=== PATIENT | female | born 1980 | race Caucasian/White ===

== ENCOUNTER 2016-11-03 | Outpatient (CLI) | payer MEDICARE, MEDICAID | END 2016-11-03 14:21 | disposition EMS.NT ==

== ENCOUNTER 2016-11-16 | Outpatient (CLI) | payer MEDICARE, MEDICAID | END 2016-11-16 19:11 | disposition EMS.NT ==

== ENCOUNTER 2016-11-24 08:00 | Outpatient (CLI) | payer MEDICARE, MEDICAID | END 2016-11-24 23:59 | disposition home or self-care (01) | DX: J92.9 Pleural plaque without asbestos (principal) ==

== ENCOUNTER 2016-12-13 15:15 | Outpatient (CLI) | payer MEDICARE, MEDICAID | END 2016-12-13 15:16 | disposition home or self-care (01) | DX: Q99.8 Other specified chromosome abnormalities (principal); G40.909 Epilepsy, unspecified, not intractable, without status epilepticus; Z79.899 Other long term (current) drug therapy; Z51.81 Encounter for therapeutic drug level monitoring; G40.319 Generalized idiopathic epilepsy and epileptic syndromes, intractable, without status epilepticus ==

== ENCOUNTER 2017-01-02 13:50 | Outpatient (CLI) | payer MEDICARE, MEDICAID | END 2017-01-02 13:51 | disposition home or self-care (01) | DX: Q99.8 Other specified chromosome abnormalities (principal); G40.909 Epilepsy, unspecified, not intractable, without status epilepticus; Z79.899 Other long term (current) drug therapy; Z51.81 Encounter for therapeutic drug level monitoring; G40.319 Generalized idiopathic epilepsy and epileptic syndromes, intractable, without status epilepticus ==

== ENCOUNTER 2017-04-06 08:19 | Emergency (ER) | payer OTHER, MEDICARE, MEDICAID ==
[2017-04-06 13:14] LABS: BILIRUBIN,URINE NEGATIVE (NEGATIVE); PH,URINE 7.5 PH (5.0-7.5)
[2017-04-06 13:16] LABS: HCG UR QUAL NEGATIVE; UA w/ MICROSCOPIC CHARGE YES
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
[2017-04-06 13:21] LABS: UR CULTURE IF IND NOT INDICATED; WBC,URINE 0-3 /HPF (0-5)
[2017-04-06 13:27] VITALS: BP 129/63
== END 2017-04-06 13:24 | disposition home or self-care (01) ==
LOC: ED 08:19
DX: T76.21XA Adult sexual abuse, suspected, initial encounter (principal); R62.50 Unspecified lack of expected normal physiological development in childhood; R25.1 Tremor, unspecified
CPT/HCPCS: 0133C; 51701; 80074; 81001; 81025; 87210; 87341; 87389; 87491; 87591; 99283; 81003; 87086

== ENCOUNTER 2018-01-09 13:37 | Outpatient (CLI) | payer MEDICARE, MEDICAID ==
[2018-01-09 14:13] LABS: BASOPHILS % (AUTO) 0.6 %; EOSINOPHILS # (AUTO) 0.1 10^3/uL (0.0-0.7); EOSINOPHILS % (AUTO) 2.1 %; HGB - HEMOGLOBIN 14.3 g/dL (12.0-16.0); LYMPHOCYTES # (AUTO) 1.2 10^3/uL (1.5-3.5); LYMPHOCYTES % (AUTO) 27.1 %; MEAN CORPUSCULAR HEMOGLOBIN 29.2 pg (27.0-31.0); MEAN CORPUSCULAR HGB CONC 32.7 g/dL (32.0-36.0); MEAN CORPUSCULAR VOLUME 89.3 fL (81.0-99.0); MONOCYTES # (AUTO) 0.3 10^3/uL (0.0-1.0); MONOCYTES % (AUTO) 7.2 %; NEUTROPHILS # (AUTO) 2.7 10^3/uL (1.5-6.6); PLT - PLATELET COUNT 116 10^3/uL (130-450); RED BLOOD COUNT 4.89 10^6/uL (4.20-5.40); RED CELL DISTRIBUTION WIDTH 14.2 % (12.0-15.0); WHITE BLOOD COUNT 4.3 x10^3/uL (4.8-10.8)
[2018-01-09 14:45] LABS: ALBUMIN 4.6 g/dL (3.2-5.5); ALBUMIN/GLOBULIN RATIO 1.9 (1.0-2.2); BILIRUBIN,TOTAL 0.3 mg/dL (0.2-1.0); CALCIUM 8.9 mg/dL (8.5-10.3); CREATININE 0.6 mg/dL (0.4-1.0)
== END 2018-01-09 13:38 | disposition home or self-care (01) ==
LOC: LAB 13:37
PROVIDERS: ATTEND Psychiatry & Neurology Neurology
DX: Z79.899 Other long term (current) drug therapy (principal)
CPT/HCPCS: 36415; 80053; 80175; 81599; 85025

== ENCOUNTER 2018-03-29 14:11 | Outpatient (CLI) | payer MEDICARE, MEDICAID | END 2018-03-29 14:12 | disposition home or self-care (01) | LOC: LAB.F 14:11 | PROVIDERS: ATTEND Internal Medicine Hematology & Oncology | DX: Z79.01 Long term (current) use of anticoagulants (principal); Z86.718 Personal history of other venous thrombosis and embolism; I82.409 Acute embolism and thrombosis of unspecified deep veins of unspecified lower extremity | CPT/HCPCS: 85610 ==

== ENCOUNTER 2018-05-18 13:52 | Outpatient (CLI) | payer MEDICARE, MEDICAID | END 2018-05-18 13:53 | disposition home or self-care (01) | LOC: LAB.F 13:52 | PROVIDERS: ATTEND Internal Medicine Hematology & Oncology | DX: I82.409 Acute embolism and thrombosis of unspecified deep veins of unspecified lower extremity (principal); Z86.718 Personal history of other venous thrombosis and embolism; Z79.01 Long term (current) use of anticoagulants | CPT/HCPCS: 85610 ==

== ENCOUNTER 2018-06-26 14:15 | Outpatient (CLI) | payer MEDICARE, MEDICAID | END 2018-06-26 14:16 | disposition home or self-care (01) | LOC: LAB.F 14:15 | PROVIDERS: ATTEND Internal Medicine Hematology & Oncology | DX: Z79.01 Long term (current) use of anticoagulants (principal); Z86.718 Personal history of other venous thrombosis and embolism; I82.409 Acute embolism and thrombosis of unspecified deep veins of unspecified lower extremity | CPT/HCPCS: 85610 ==

== ENCOUNTER 2019-08-01 12:20 | Emergency (ER) | payer MEDICARE, MEDICAID ==
[2019-08-01 12:29] VITALS: BP 100/64
[2019-08-01] MEDS ORDERED: PROPARACAINE 0.5% OPHTH DROPS 15 ML RIGHTEYE STA (13:34)
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
== END 2019-08-01 14:18 | disposition home or self-care (01) ==
LOC: ED 12:20
DX: B00.52 Herpesviral keratitis (principal); Z79.01 Long term (current) use of anticoagulants; Z86.718 Personal history of other venous thrombosis and embolism; G40.909 Epilepsy, unspecified, not intractable, without status epilepticus
CPT/HCPCS: 99283; 99284; J3490

== ENCOUNTER 2019-08-19 14:32 | Outpatient (CLI) | payer MEDICARE, MEDICAID | END 2019-08-19 14:33 | disposition home or self-care (01) | LOC: LAB.S 14:32 | PROVIDERS: ATTEND Psychiatry & Neurology Neurology | DX: Z51.81 Encounter for therapeutic drug level monitoring (principal); Z79.899 Other long term (current) drug therapy; G40.919 Epilepsy, unspecified, intractable, without status epilepticus | CPT/HCPCS: 36415; 80175; 80201; 81599 ==

== ENCOUNTER 2020-08-08 15:40 | Outpatient (CLI) | payer MEDICARE, MEDICAID | END 2020-08-08 23:59 | disposition home or self-care (01) | LOC: LAB.R 15:40 | PROVIDERS: ATTEND Emergency Medicine | DX: J34.89 Other specified disorders of nose and nasal sinuses (principal) | CPT/HCPCS: 87070 ==

== ENCOUNTER 2020-12-22 14:05 | Outpatient (CLI) | payer MEDICARE, MEDICAID ==
[2020-12-22 20:01] LABS: ALBUMIN 4.1 g/dL (3.2-5.5); BILIRUBIN,DIRECT 0.1 mg/dL (0.1-0.5); BILIRUBIN,TOTAL 0.5 mg/dL (0.2-1.0)
== END 2020-12-22 14:06 | disposition home or self-care (01) ==
LOC: LAB.S 14:05
PROVIDERS: ATTEND Psychiatry & Neurology Neurology
DX: G40.814 Lennox-Gastaut syndrome, intractable, without status epilepticus (principal); Z51.81 Encounter for therapeutic drug level monitoring; Z79.899 Other long term (current) drug therapy
CPT/HCPCS: 36415; 80076; 80175; 80201; 81599; 87086

== ENCOUNTER 2021-03-22 16:41 | Outpatient (CLI) | payer MEDICARE, MEDICAID | END 2021-03-22 16:42 | disposition home or self-care (01) | LOC: COV 16:41 | PROVIDERS: ATTEND Internal Medicine Gastroenterology | DX: Z01.812 Encounter for preprocedural laboratory examination (principal); Z20.822 Contact with and (suspected) exposure to COVID-19 ==

== ENCOUNTER 2021-04-08 08:00 | Outpatient (CLI) | payer MEDICARE, MEDICAID ==
--- NOTE | 2021-04-08 14:27 | XRAY Report ---
PROCEDURE: Ankle 3 View LT INDICATIONS: PALLISTER-MARSHA SYNDROME/BILATERAL ANKLE PAIN TECHNIQUE: 3 views of the ankle were acquired. COMPARISON: None FINDINGS: Bones: No fractures or dislocations. Ankle mortise is normally aligned. No suspicious bony lesions . Soft tissues: No tibiotalar joint effusion. Achilles tendon appears normal. IMPRESSION: No acute fracture. No osseous lesion. If symptoms and/or clinical suspicion for patholog y continue, further assessment with repeat plain films, or advanced imaging (e.g., CT, MRI, or bone s can) is recommended for further assessment. Reviewed by: Cristopher Nunez MD on 04/08/2021 2:26 PM PDT Approved by: Cristopher Nunez MD on 04/08/2021 2:26 PM PDT Station ID: [id number]
--- NOTE | 2021-04-08 14:28 | XRAY Report ---
PROCEDURE: Ankle 3 View RT INDICATIONS: PALLISTER-MARSHA SYNDROME/BILATERAL ANKLE PAIN TECHNIQUE: 3 views of the ankle were acquired. COMPARISON: None FINDINGS: Bones: No fractures or dislocations. Ankle mortise is normally aligned. No suspicious bony lesions . Soft tissues: No tibiotalar joint effusion. Achilles tendon appears normal. IMPRESSION: No acute fracture. No osseous lesion. If symptoms and/or clinical suspicion for patholog y continue, further assessment with repeat plain films, or advanced imaging (e.g., CT, MRI, or bone s can) is recommended for further assessment. Reviewed by: Cristopher Nunez MD on 04/08/2021 2:26 PM PDT Approved by: Cristopher Nunez MD on 04/08/2021 2:26 PM PDT Station ID: [id number]
== END 2021-04-08 23:59 | disposition home or self-care (01) ==
LOC: DI.S 08:00
PROVIDERS: ATTEND Emergency Medicine
DX: M25.571 Pain in right ankle and joints of right foot (principal); M25.572 Pain in left ankle and joints of left foot

== ENCOUNTER 2021-04-29 08:00 | Outpatient (CLI) | payer MEDICARE, MEDICAID ==
--- NOTE | 2021-04-29 15:11 | XRAY Report ---
PROCEDURE: Chest 2 View X-Ray INDICATIONS: COUGH TECHNIQUE: 2 view(s) of the chest. COMPARISON: None. FINDINGS: Surgical changes and devices: None. Lungs and pleura: No pleural effusions or pneumothorax. Lungs are clear. Mediastinum: Mediastinal contours are normal. Heart size is normal. Bones and chest wall: No suspicious bony abnormalities. Soft tissues appear unremarkable. IMPRESSION: No acute cardiopulmonary disease process. Reviewed by: Cheyenne Bellamy MD, PhD on 04/29/2021 3:09 PM PDT Approved by: Cheyenne Bellamy MD, PhD on 04/29/2021 3:09 PM PDT Station ID: [id number]
== END 2021-04-29 23:59 | disposition home or self-care (01) ==
LOC: DI.S 08:00
PROVIDERS: ATTEND Physician Assistant Medical
DX: R05 Cough (principal); Z20.822 Contact with and (suspected) exposure to COVID-19
CPT/HCPCS: 71046; U0004

== ENCOUNTER 2021-04-29 08:00 | Outpatient (CLI) | payer MEDICARE, MEDICAID | END 2021-04-29 23:59 | disposition home or self-care (01) | LOC: LAB.S 08:00 | PROVIDERS: ATTEND Physician Assistant Medical | DX: R05 Cough (principal); Z20.822 Contact with and (suspected) exposure to COVID-19 ==

== ENCOUNTER 2021-05-03 17:20 | Outpatient (CLI) | payer MEDICARE, MEDICAID | END 2021-05-03 17:21 | disposition home or self-care (01) | LOC: COV 17:20 | DX: Z53.9 Procedure and treatment not carried out, unspecified reason (principal) ==

== ENCOUNTER 2021-05-08 11:48 | Emergency (ER) | payer MEDICARE, MEDICAID ==
--- NOTE | 2021-05-08 12:37 | ED Physician Documentation ---
History of Present Illness - Stated complaint Stated Complaint: COUGHING - Chief complaint Chief Complaint: Heent - Additonal information Additional information: 40-year-old female who has a history of P KS syndrome presents the emergency de partment for evaluation of persistence of cough. She initially began to develop a cough on 23 April while traveling. Shortly after returning to the [place] she did see a primary doctor in which a chest x-ray was completed that may have shown an aspiration event versus pneumonia. She just completed a 10-day course of Augmentin this morning. Her caregiver is with her and reports that the cough has not improved. Sarai has not had any fevers. No vomiting or diarrhea. She notes that sometimes she seems to pull at her throat or ears. Due to her syndrome the patient is nonverbal and very hypotonic. Review of Systems Unable to obtain: Other (History obtained from caregiver.) Constitutional: denies: Fever, Chills Throat: reports: Sore throat Cardiac: denies: Chest pain / pressure, Palpitations Respiratory: reports: Cough. denies: Dyspnea GI: reports: Reviewed and negative : reports: Reviewed and negative Skin: reports: Reviewed and negative Musculoskeletal: reports: Reviewed and negative PD PAST MEDICAL HISTORY - Past Medical History Cardiovascular: Deep vein thrombosis Neuro: Seizure disorder, Other HEENT: Chronic hearing loss - Past Surgical History Past Surgical History: No - Present Medications Home Medications: Ambulatory Orders Medication Instructions Recorded Confirmed Ascorbate Calcium [Vitamin C] 1,000 mg PO DAILY 03/25/13 03/30/21 Cholecalciferol [Vitamin D3] 2,000 unit PO DAILY 03/25/13 03/30/21 Melatonin 4 tab PO DAILY 03/25/13 03/30/21 lamoTRIgine [LaMICtal] 200 mg PO QID 03/25/13 03/30/21 Magnesium 500 mg PO DAILY 03/24/15 03/30/21 Nystatin [Nyamyc] 1 applic TP TID #1 bottle 03/24/15 03/30/21 Clotrimazole/Betamethasone Dip 15 gm TP BID 03/23/16 03/30/21 [Clotrimazole-Betamethasone Crm] polyethylene glycoL 3350 1,700 gm PO DAILY PRN 05/02/17 03/30/21 [Laxaclear] Topiramate Sprinkles 800 mg ORAL BID 10/23/18 03/30/21 Ferrous Gluconate [Iron] 240 mg PO DAILY 01/29/19 03/30/21 Neomycin/Poly/Dexam Ophth Oint 0.5 gm RIGHTEYE BID #1 tube 08/01/19 03/30/21 [Maxitrol Ophth Oint] Warfarin Sodium 3 mg PO DAILY 08/06/20 03/30/21 Warfarin Sodium 4 mg PO DAILY 08/06/20 03/30/21 - Allergies Allergies/Adverse Reactions: Allergies Allergy/AdvReac Type Severity Reaction Status Date / Time No Known Drug Allergies Allergy Verified 05/08/21 12:17 - Social History Does the pt smoke?: No Smoking Status: Never smoker Does the pt drink ETOH?: No Does the pt have substance abuse?: No - Immunizations Immunizations are current?: Yes PD ED PE EXPANDED - General General: Other (Chronically ill-appearing female.) - Cardiac Cardiac: Regular Rate, Radial strong equal, Cap refill < 2 sec - Respiratory Respiratory: Clear to ausultation shaka. No: Distress, Labored - Abdomen Abdomen: Normal Bowel sounds. 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 She has finished a course of Augmentin for suspected aspiration pneumonia. Repeat chest x-ray here does not show any focal pneumonia. Because her coughing episodes are worse at night I do suspect that given her PK syndrome that she is likely having acid reflux. I have encouraged caregiver to continue the Mucinex which she feels is helpful as well is [place] upright sleeping with use of a wedge pillow at home. Emergent return precautions were discussed for fevers, worsening cough or respiratory distress. Departure - Departure Disposition: 01 Home, Self Care Clinical Impression: Cough Condition: Stable Record reviewed to determine appropriate education?: Yes Comments: Sarai was seen in the ER today for evaluation of her cough. Her chest x-ray does not show any pneumonia. She does not have any fevers and her lungs are essentially very clear on exam. I would encourage you to continue to use the Mucinex at home as it does seem to help. However I do wonder if she is having some acid reflux at night that is worsening her cough. Sleeping upright on some pillows can help with this. If at any point you feel that her symptoms are worsening, she develops fevers, or has any respiratory distress then please return immediately to the ER for a second look.
--- NOTE | 2021-05-08 12:56 | XRAY Report ---
PROCEDURE: Chest 1 View X-Ray INDICATIONS: cough not improved after abx TECHNIQUE: One view of the chest was acquired. COMPARISON: 04/29/2021 FINDINGS: Surgical changes and devices: None. Lungs and pleura: An incomplete inspiratory result is noted, with low lung volumes and crowding of t he vascular markings. No focal infiltrates are seen. No large pneumothorax or large pleural effusion can be seen. Mediastinum: Mediastinal contours appear normal. Heart size is normal. Bones and chest wall: No suspicious bony lesions. Overlying soft tissues appear unremarkable. IMPRESSION: Portable chest within normal limits for age. Reviewed by: Santana Tian MD on 05/08/2021 11:55 AM [facility] Approved by: Santana Tian MD on 05/08/2021 11:55 AM [facility] Station ID: [id number]
[2021-05-08 13:41] VITALS: BP 106/73
== END 2021-05-08 13:41 | disposition home or self-care (01) ==
LOC: ED 11:48
DX: R05 Cough (principal); Q99.8 Other specified chromosome abnormalities
CPT/HCPCS: 99283

== ENCOUNTER 2021-07-13 16:25 | Outpatient (CLI) | payer MEDICARE, MEDICAID | END 2021-07-13 16:26 | disposition home or self-care (01) | LOC: COV 16:25 | PROVIDERS: ATTEND Internal Medicine Gastroenterology | DX: Z01.812 Encounter for preprocedural laboratory examination (principal); Z20.822 Contact with and (suspected) exposure to COVID-19 ==

== ENCOUNTER 2021-08-10 16:36 | Outpatient (CLI) | payer MEDICARE, MEDICAID | END 2021-08-10 16:37 | disposition home or self-care (01) | LOC: COV 16:36 | PROVIDERS: ATTEND Family Medicine | DX: R05.9 Cough, unspecified (principal); R06.02 Shortness of breath; R53.83 Other fatigue; R07.0 Pain in throat; Z20.822 Contact with and (suspected) exposure to COVID-19 ==

== ENCOUNTER 2021-08-16 18:40 | Outpatient (CLI) | payer MEDICARE, MEDICAID | END 2021-08-16 18:41 | disposition home or self-care (01) | LOC: COV 18:40 | PROVIDERS: ATTEND Family Medicine | DX: Z20.822 Contact with and (suspected) exposure to COVID-19 (principal) ==

== ENCOUNTER 2021-10-20 08:00 | Outpatient (CLI) | payer MEDICARE, MEDICAID ==
--- NOTE | 2021-10-20 16:09 | XRAY Report ---
PROCEDURE: Chest 2 View X-Ray INDICATIONS: WHEEZING TECHNIQUE: 2 view(s) of the chest. COMPARISON: May 08, 2021 FINDINGS: SUPPORT DEVICES: None. LUNGS/PLEURA: Reduced lung volumes. No focal consolidation, pleural effusion or space-occupying pneum othorax. MEDIASTINUM: The cardiomediastinal silhouette is within normal limits. BONES/SOFT TISSUES: No acute abnormality. IMPRESSION: 1.No acute cardiopulmonary abnormality. Reviewed by: Leonides Hooper MD on 10/20/2021 4:08 PM PST Approved by: Leonides Hooper MD on 10/20/2021 4:08 PM [facility] Station ID: [id number]
== END 2021-10-20 23:59 | disposition home or self-care (01) ==
LOC: DI.S 08:00
PROVIDERS: ATTEND Internal Medicine
DX: R06.2 Wheezing (principal)

== ENCOUNTER 2021-10-20 15:41 | Outpatient (CLI) | payer MEDICARE, MEDICAID ==
[2021-10-20 20:15] LABS: BASOPHILS % (AUTO) 0.3 %; EOSINOPHILS # (AUTO) 0.1 10^3/uL (0.0-0.7); EOSINOPHILS % (AUTO) 2.5 %; HCT - HEMATOCRIT 40.6 % (37.0-47.0); HGB - HEMOGLOBIN 12.9 g/dL (12.0-16.0); LYMPHOCYTES # (AUTO) 1.4 10^3/uL (1.5-3.5); LYMPHOCYTES % (AUTO) 34.3 %; MEAN CORPUSCULAR HEMOGLOBIN 26.4 pg (27.0-31.0); MEAN CORPUSCULAR HGB CONC 31.8 g/dL (32.0-36.0); MEAN CORPUSCULAR VOLUME 83.2 fL (81.0-99.0); MEAN PLATELET VOLUME 11.9 fL (7.9-10.8); MONOCYTES # (AUTO) 0.3 10^3/uL (0.0-1.0); MONOCYTES % (AUTO) 7.1 %; NEUTROPHILS # (AUTO) 2.2 10^3/uL (1.5-6.6); NEUTROPHILS % (AUTO) 55.5 %; PLT - PLATELET COUNT 108 10^3/uL (130-450); RED BLOOD COUNT 4.88 10^6/uL (4.20-5.40)
[2021-10-20 20:30] LABS: ALBUMIN 4.4 g/dL (3.2-5.5); ALBUMIN/GLOBULIN RATIO 1.6 (1.0-2.2); BILIRUBIN,TOTAL 0.5 mg/dL (0.2-1.0); CALCIUM 9.3 mg/dL (8.5-10.3); CREATININE 0.7 mg/dL (0.4-1.0); POTASSIUM 4.2 mmol/L (3.5-5.0); TOTAL PROTEIN 7.1 g/dL (6.7-8.2)
== END 2021-10-20 15:42 | disposition home or self-care (01) ==
LOC: LAB.S 15:41
PROVIDERS: ATTEND Internal Medicine
DX: Z79.01 Long term (current) use of anticoagulants (principal); Z51.81 Encounter for therapeutic drug level monitoring; E55.9 Vitamin D deficiency, unspecified; R06.2 Wheezing
CPT/HCPCS: 36415; 80053; 80175; 82306; 85025

== ENCOUNTER 2022-01-12 14:38 | Outpatient (CLI) | payer MEDICARE, MEDICAID ==
[2022-01-12 20:23] LABS: ALBUMIN 4.2 g/dL (3.2-5.5); BILIRUBIN,DIRECT 0.2 mg/dL (0.1-0.5); BILIRUBIN,TOTAL 0.4 mg/dL (0.2-1.0); TOTAL PROTEIN 6.9 g/dL (6.7-8.2)
== END 2022-01-12 14:39 | disposition home or self-care (01) ==
LOC: LAB.S 14:38
PROVIDERS: ATTEND Psychiatry & Neurology Neurology
DX: G40.909 Epilepsy, unspecified, not intractable, without status epilepticus (principal); Z79.899 Other long term (current) drug therapy
CPT/HCPCS: 36415; 80076; 80175; 80201; 81599

== ENCOUNTER 2023-01-30 13:47 | Emergency (ER) | payer MEDICARE, MEDICAID ==
[2023-01-30 14:06] VITALS: BP 113/77
[2023-01-30] MEDS ORDERED: NIRMATRELVIR/RITONAVIR PREPACK PO STA (14:13)
--- NOTE | 2023-01-30 14:20 | ED Physician Documentation ---
History of Present Illness - Stated complaint Stated Complaint: C POSITIVE - Chief complaint Chief Complaint: General - History obtained from History obtained from: Family - Additonal information Additional information: Patient comes to the emergency department chief complaint of being diagnosed with COVID at an outside facility and Mother wanting Paxlovid. Patient's mother states they were unable to dispense the COVID at the clinic, and was sent here. She reports a mild fever and cough for the patient who is severely special needs and nonverbal. PD PAST MEDICAL HISTORY - Past Medical History Cardiovascular: Deep vein thrombosis Neuro: Seizure disorder, Other HEENT: Chronic hearing loss - Past Surgical History Past Surgical History: No - Present Medications Home Medications: Ambulatory Orders Medication Instructions Recorded Confirmed Ascorbate Calcium [Vitamin C] 1,000 mg PO DAILY 03/25/13 03/22/22 Cholecalciferol [Vitamin D3] 2,000 unit PO DAILY 03/25/13 03/22/22 Melatonin 4 tab PO DAILY 03/25/13 03/22/22 lamoTRIgine [LaMICtal] 200 mg PO QID 03/25/13 03/22/22 Magnesium 500 mg PO DAILY 03/24/15 03/22/22 Nystatin [Nyamyc] 1 applic TP TID #1 bottle 03/24/15 03/22/22 Clotrimazole/Betamethasone Dip 15 gm TP BID 03/23/16 03/22/22 [Clotrimazole-Betamethasone Crm] polyethylene glycoL 3350 1,700 gm PO DAILY PRN 05/02/17 03/22/22 [Laxaclear] Topiramate Sprinkles 800 mg ORAL BID 10/23/18 03/22/22 Ferrous Gluconate [Iron] 240 mg PO DAILY 01/29/19 03/22/22 Warfarin Sodium 3 mg PO DAILY 08/06/20 03/22/22 Warfarin Sodium 4 mg PO DAILY 08/06/20 03/22/22 - Allergies Allergies/Adverse Reactions: Allergies Allergy/AdvReac Type Severity Reaction Status Date / Time No Known Drug Allergies Allergy Verified 01/30/23 14:01 - Social History Does the pt smoke?: No Smoking Status: Never smoker Does the pt drink ETOH?: No Does the pt have substance abuse?: No - Immunizations Immunizations are current?: Yes PD ED PE NORMAL - Vitals Vital signs reviewed: Yes - General General: Other (Awake, staring ahead, nonverbal/noncommunicative.) - HEENT HEENT: Atraumatic, PERRL, EOMI, Moist mucous membranes - Neck Neck: Supple, no meningeal sign - Cardiac Cardiac: RRR, No murmur - Respiratory Respiratory: No respiratory distress, Clear bilaterally - Abdomen Abdomen: Soft, Non tender, Non distended - Derm Derm: Normal color, Warm and dry, No rash - Extremities Extremities: No deformity, No edema, No calf tenderness / cord - Neuro Neuro: Other (Awake, moving all extremities to some degree.) - Psych Psych: Normal mood, Normal affect Results - Vitals Vitals: Oxygen O2 Source Room air PD Medical Decision Making - ED course Complexity details: considered differential, d/w family ED course: The patient's mother was quite irritable at having to be in the ED, And spent most of the time airing her grievances about the hospital and shifting the focus away from my questions as to the patient's symptoms. I did finally have to have a niharika conversation with the patient's mother about this. The patient was minimally ill, but I will go ahead and give them Paxlovid. Mother was instructed on how to give this to the patient and is also instructed regarding the usual indications for return. Departure - Departure Disposition: 01 Home, Self Care Clinical Impression: COVID-19 Condition: Stable Instructions: ED Viral Syndrome Comments: You were diagnosed with COVID at an outside facility. You have come to the emergency department today for Paxlovid and this has been dispensed. You will most likely be sick for the next week or two but sometimes symptoms go away Patient and as little as a few days. Most cases of COVID cause mild to moderate symptoms and get better without difficulty on their own. Like any virus, COVID has to be gotten rid of by your body and there is no antibiotic or other treatment to directly get rid of it. The Paxlovid can help shorten the course of the illness sometimes and should be taken as directed. Discharge Date/Time: 01/30/23 14:58
== END 2023-01-30 14:58 | disposition home or self-care (01) ==
LOC: ED 13:47
DX: U07.1 COVID-19 (principal)
CPT/HCPCS: 99282; 99284; J3490

== ENCOUNTER 2023-02-21 08:00 | Outpatient (CLI) | payer MEDICARE, MEDICAID | END 2023-02-21 23:59 | disposition home or self-care (01) | LOC: LAB.S 08:00 | PROVIDERS: ATTEND Emergency Medicine | DX: L89.101 Pressure ulcer of unspecified part of back, stage 1 (principal) | CPT/HCPCS: 87070; 87077; 87181; 87205 ==

== ENCOUNTER 2023-03-08 10:51 | Emergency (ER) | payer MEDICARE, MEDICAID ==
[2023-03-08] MEDS ORDERED: SOAP SUDS ENEMA 1 EACH RC ONE (11:28)
[2023-03-08] MEDS ORDERED: DIATR MEGLU/DIATRIZOATE SODIUM 120 ML BOTTLE PO ONE (11:28)
--- NOTE | 2023-03-08 11:29 | ED Physician Documentation ---
History of Present Illness - Stated complaint Stated Complaint: FEMALE GI - Chief complaint Chief Complaint: Abd Pain - History obtained from History obtained from: Patient, Family, Caregiver - History of Present Illness Timing: Today Pain level max: 0 Pain level now: 0 - Additonal information Additional information: 42-year-old developmentally delayed female brought in by family and caregiver for constipation for the past 2 weeks. They did try MiraLAX at home without relief. They state they were told not to do an enema because the patient is on warfarin. No vomiting. Eating and drinking without difficulty. Nothing makes it better or worse. Patient is asymptomatic. They were also supposed to come to the hospital for a "x-ray". They are unsure what the x-ray is, but states that [facility]IA has the order. Review of Systems Constitutional: denies: Fever, Chills GI: denies: Vomiting, Diarrhea, Hematemesis, Bloody / black stool PD PAST MEDICAL HISTORY - Past Medical History Past Medical History: Yes Cardiovascular: Deep vein thrombosis Neuro: Seizure disorder, Other HEENT: Chronic hearing loss - Past Surgical History Past Surgical History: No - Present Medications Home Medications: Ambulatory Orders Medication Instructions Recorded Confirmed Ascorbate Calcium [Vitamin C] 1,000 mg PO DAILY 03/25/13 03/22/22 Cholecalciferol [Vitamin D3] 2,000 unit PO DAILY 03/25/13 03/22/22 Melatonin 4 tab PO DAILY 03/25/13 03/22/22 lamoTRIgine [LaMICtal] 200 mg PO QID 03/25/13 03/22/22 Magnesium 500 mg PO DAILY 03/24/15 03/22/22 Nystatin [Nyamyc] 1 applic TP TID #1 bottle 03/24/15 03/22/22 Clotrimazole/Betamethasone Dip 15 gm TP BID 03/23/16 03/22/22 [Clotrimazole-Betamethasone Crm] polyethylene glycoL 3350 1,700 gm PO DAILY PRN 05/02/17 03/22/22 [Laxaclear] Topiramate Sprinkles 800 mg ORAL BID 10/23/18 03/22/22 Ferrous Gluconate [Iron] 240 mg PO DAILY 01/29/19 03/22/22 Warfarin Sodium 3 mg PO DAILY 08/06/20 03/22/22 Warfarin Sodium 4 mg PO DAILY 08/06/20 03/22/22 - Allergies Allergies/Adverse Reactions: Allergies Allergy/AdvReac Type Severity Reaction Status Date / Time No Known Drug Allergies Allergy Verified 03/08/23 11:17 - Social History Does the pt smoke?: No Smoking Status: Never smoker Does the pt drink ETOH?: No Does the pt have substance abuse?: No - Immunizations Immunizations are current?: Yes PD ED PE NORMAL - Vitals Vital signs reviewed: Yes - General General: Well developed/nourished, Other (Alert, at her normal baseline) - HEENT HEENT: Moist mucous membranes, Pharynx benign - Neck Neck: Supple, no meningeal sign - Cardiac Cardiac: RRR, Strong equal pulses - Respiratory Respiratory: No respiratory distress, Clear bilaterally - Abdomen Abdomen: Soft, Non tender, Non distended - Derm Derm: Warm and dry - Neuro Neuro: Other (Alert, at her normal baseline) Results - Vitals Vitals: Vital Signs - 24 hr 03/08/23 03/08/23 11:07 13:11 Temperature 36.4 C L Heart Rate 79 75 Respiratory 15 16 Rate Blood Pressure 133/81 H 144/76 H O2 Saturation 98 Oxygen O2 Source Room air - Rads (name of study) Abdomen 1 view Relevant Findings:: Final report received, See rad report PD Medical Decision Making - ED course Complexity details: reviewed results, considered differential, d/w patient ED course: 42-year-old developmentally delayed female with constipation. No clinical signs of obstruction. Her doctor had ordered a 1 view KUB for constipation, therefore this was ordered and does show moderate constipation without signs of obstruction. Patient was given an enema here as well as oral Gastrografin. We will have her increase her water intake at home and follow-up with her doctor for further care. Family counseled regarding signs and symptoms for which I believe and urgent re-evaluation would be necessary. Family with good understanding of and agreement to plan and is comfortable going home at this time This document was made in part using voice recognition software. While efforts are made to proofread this document, sound alike and grammatical errors may occur. Departure - Departure Disposition: Home, Self Care Clinical Impression: Constipation Qualifiers: Constipation type: unspecified constipation type Qualified Code(s): K59.00 - Constipation, unspecified Condition: Good Instructions: ED Constipation Follow-Up: your,doctor in 1 week [Other] Comments: Make sure to drink plenty of water today. The Gastrografin should produce a bowel movement later today. Please follow-up with your doctor for further care. There are no signs of obstruction. PROCEDURE: Abdomen 1 View X-Ray INDICATIONS: constipation TECHNIQUE: One view of the abdomen acquired. COMPARISON: None. FINDINGS: Surgical changes and devices: None. Bowel: Bowel gas pattern is normal. Moderate colonic stool load. Soft tissues: No suspicious abdominal calcifications. Visualized solid organ contours appear normal in size. Bones: No suspicious bony lesions. IMPRESSION: Moderate colonic stool load. Discharge Date/Time: 03/08/23 13:58
[2023-03-08] MEDS ORDERED: DIATR MEGLU/DIATRIZOATE SODIUM 120 ML BOTTLE ONE (12:14)
--- NOTE | 2023-03-08 13:07 | XRAY Report ---
PROCEDURE: Abdomen 1 View X-Ray INDICATIONS: constipation TECHNIQUE: One view of the abdomen acquired. COMPARISON: None. FINDINGS: Surgical changes and devices: None. Bowel: Bowel gas pattern is normal. Moderate colonic stool load. Soft tissues: No suspicious abdominal calcifications. Visualized solid organ contours appear normal in size. Bones: No suspicious bony lesions. IMPRESSION: Moderate colonic stool load. Reviewed by: Rambo Aguero on 03/08/2023 12:06 PM MONTSE Approved by: Rambo Aguero on 03/08/2023 12:06 PM [place]IR[place] Station ID: [id number]
[2023-03-08 13:59] VITALS: BP 144/76
== END 2023-03-08 13:58 | disposition home or self-care (01) ==
LOC: ED 10:51
DX: K59.00 Constipation, unspecified (principal); Z79.899 Other long term (current) drug therapy; Z79.01 Long term (current) use of anticoagulants
CPT/HCPCS: 74018; 99283; A9270; Q9963

== ENCOUNTER 2023-03-15 13:04 | Outpatient (CLI) | payer MEDICARE, MEDICAID ==
--- NOTE | 2023-03-15 15:07 | CT Report ---
PROCEDURE: HEAD WO INDICATIONS: RECURRENT HEAD INJURIES TECHNIQUE: Noncontrast 4.5 mm thick angled axial sections acquired from the foramen magnum to the vertex. For r adiation dose reduction, the following was used: automated exposure control, adjustment of mA and/or kV according to patient size. COMPARISON: None. FINDINGS: Image quality: Study degraded by motion artifact. CSF spaces: Basal cisterns are patent. No extra-axial fluid collections. Ventricles are normal in size and shape. Brain: No midline shift. No intracranial masses or hemorrhage. Sage-white matter interface is norm al. Skull and face: Calvarium and visualized facial bones are intact, without suspicious lesions. Sinuses: Visualized sinuses and mastoids are clear. IMPRESSION: CT head without acute intracranial abnormalities. No evidence for subacute hemorrhage. No calvarial f ractures noted. No mass or mass effect. Reviewed by: Ben Owens MD on 03/15/2023 3:06 PM PDT Approved by: Ben Owens MD on 03/15/2023 3:06 PM PDT Station ID: [id number]
== END 2023-03-15 13:05 | disposition home or self-care (01) ==
LOC: DI 13:04
PROVIDERS: ATTEND Psychiatry & Neurology Neurology
DX: R62.50 Unspecified lack of expected normal physiological development in childhood (principal); S05.12XD Contusion of eyeball and orbital tissues, left eye, subsequent encounter

== ENCOUNTER 2023-05-18 14:25 | Emergency (ER) | payer MEDICARE, MEDICAID ==
[2023-05-18 14:44] VITALS: BP 123/90
[2023-05-18] MEDS ORDERED: DIATR MEGLU/DIATRIZOATE SODIUM 120 ML BOTTLE PO ONE (14:58)
--- NOTE | 2023-05-18 15:06 | ED Physician Documentation ---
History of Present Illness - Stated complaint Stated Complaint: GI - Chief complaint Chief Complaint: Abd Pain - History obtained from History obtained from: Patient, Family, Caregiver - History of Present Illness Pain level max: 0 Pain level now: 0 - Additonal information Additional information: Patient is a 42-year-old female who presents to the emergency department with her caregiver. Patient is unable to give history. Has a longstanding history of constipation. She has been constipated for 4 days, family and caregiver states that the enemas are not working at home. Her GI doctor recommended they come here for administration of Gastrografin as this is worked in the past. No vomiting. No fevers. Nothing makes it better or worse Review of Systems Constitutional: denies: Fever GI: reports: Constipation. denies: Vomiting, Diarrhea, Hematemesis, Bloody / black stool PD PAST MEDICAL HISTORY - Past Medical History Cardiovascular: Deep vein thrombosis Neuro: Seizure disorder, Other HEENT: Chronic hearing loss - Past Surgical History Past Surgical History: No - Present Medications Home Medications: Ambulatory Orders Medication Instructions Recorded Confirmed Ascorbate Calcium [Vitamin C] 1,000 mg PO DAILY 03/25/13 05/09/23 Cholecalciferol [Vitamin D3] 2,000 unit PO DAILY 03/25/13 05/09/23 Melatonin 4 tab PO DAILY 03/25/13 05/09/23 lamoTRIgine [LaMICtal] 200 mg PO QID 03/25/13 05/09/23 Magnesium 500 mg PO DAILY 03/24/15 05/09/23 Nystatin [Nyamyc] 1 applic TP TID #1 bottle 03/24/15 05/09/23 Clotrimazole/Betamethasone Dip 15 gm TP BID 03/23/16 05/09/23 [Clotrimazole-Betamethasone Crm] polyethylene glycoL 3350 1,700 gm PO DAILY PRN 05/02/17 05/09/23 [Laxaclear] Topiramate Sprinkles 800 mg ORAL BID 10/23/18 05/09/23 Warfarin Sodium 3 mg PO DAILY 08/06/20 05/09/23 Warfarin Sodium 4 mg PO DAILY 08/06/20 05/09/23 - Allergies Allergies/Adverse Reactions: Allergies Allergy/AdvReac Type Severity Reaction Status Date / Time No Known Drug Allergies Allergy Verified 05/18/23 14:28 - Social History Does the pt smoke?: No Smoking Status: Never smoker Does the pt drink ETOH?: No Does the pt have substance abuse?: No - Immunizations Immunizations are current?: Yes PD ED PE NORMAL - Vitals Vital signs reviewed: Yes - General General: No acute distress, Other (alert, at neuro baseline) - HEENT HEENT: Moist mucous membranes - Neck Neck: Supple, no meningeal sign - Cardiac Cardiac: RRR, Strong equal pulses - Respiratory Respiratory: No respiratory distress, Clear bilaterally - Abdomen Abdomen: Soft, Non tender, Non distended - Derm Derm: Warm and dry - Neuro Neuro: Other (alert, at neuro baseline) Results - Vitals Vitals: Vital Signs - 24 hr 05/18/23 14:28 Temperature 36.5 C Heart Rate 83 Respiratory 16 Rate Blood Pressure 123/90 H O2 Saturation 97 Oxygen O2 Source Room air PD Medical Decision Making - ED course Complexity details: considered differential, d/w patient, d/w family ED course: Patient was given a bottle of Gastrografin here and drink it without difficulty. No evidence of obstruction. We will have her follow-up with her GI for further care. This was discussed with her caregiver and family member. No indication for emergent imaging. No vomiting. Abdomen is soft, nontender nondistended. This document was made in part using voice recognition software. While efforts are made to proofread this document, sound alike and grammatical errors may occur. Departure - Departure Disposition: 01 Home, Self Care Clinical Impression: Constipation Qualifiers: Constipation type: unspecified constipation type Qualified Code(s): K59.00 - Constipation, unspecified Condition: Good Instructions: ED Constipation Follow-Up: Palak Contreras ARNP [Primary Care Provider] - Comments: She was given a bottle of Gastrografin today, this is Gastrografin 6610, 120 mL by mouth. You can discuss with her primary care provider or GI doctor if this is something she could have at home for constipation. Forms: PCP List Discharge Date/Time: 05/18/23 15:30
== END 2023-05-18 15:30 | disposition home or self-care (01) ==
LOC: ED 14:25
DX: K59.00 Constipation, unspecified (principal); Z79.01 Long term (current) use of anticoagulants; Z79.899 Other long term (current) drug therapy
CPT/HCPCS: 99282; 99283; Q9963

== ENCOUNTER 2023-10-17 07:00 | Outpatient (CLI) | payer MEDICARE, MEDICAID ==
[2023-10-17 15:16] LABS: BASOPHILS % (AUTO) 0.5 %; EOSINOPHILS # (AUTO) 0.1 10^3/uL (0.0-0.7); EOSINOPHILS % (AUTO) 2.1 %; HCT - HEMATOCRIT 42.4 % (37.0-47.0); HGB - HEMOGLOBIN 12.6 g/dL (12.0-16.0); LYMPHOCYTES # (AUTO) 1.1 10^3/uL (1.5-3.5); LYMPHOCYTES % (AUTO) 26.5 %; MEAN CORPUSCULAR HEMOGLOBIN 25.5 pg (27.0-31.0); MEAN CORPUSCULAR HGB CONC 29.7 g/dL (32.0-36.0); MEAN CORPUSCULAR VOLUME 85.7 fL (81.0-99.0); MEAN PLATELET VOLUME 12.7 fL (7.9-10.8); MONOCYTES # (AUTO) 0.4 10^3/uL (0.0-1.0); MONOCYTES % (AUTO) 8.6 %; NEUTROPHILS # (AUTO) 2.7 10^3/uL (1.5-6.6); NEUTROPHILS % (AUTO) 62.1 %; PLT - PLATELET COUNT 126 10^3/uL (130-450); RED BLOOD COUNT 4.95 10^6/uL (4.20-5.40); RED CELL DISTRIBUTION WIDTH 15.9 % (12.0-15.0); WHITE BLOOD COUNT 4.3 x10^3/uL (4.8-10.8)
[2023-10-17 15:52] LABS: ALBUMIN 4.5 g/dL (3.2-5.5); ALBUMIN/GLOBULIN RATIO 1.6 (1.0-2.2); BILIRUBIN,TOTAL 0.3 mg/dL (0.2-1.0); CALCIUM 9.3 mg/dL (8.5-10.3); CREATININE 0.7 mg/dL (0.6-1.3); TOTAL PROTEIN 7.3 g/dL (6.4-8.9)
--- NOTE | 2023-10-17 17:21 | XRAY Report ---
PROCEDURE: Chest 2V INDICATIONS: ACUTE COUGH, FATIGUE TECHNIQUE: 2 views of the chest were acquired. COMPARISON: Chest radiograph 10/20/2021. FINDINGS: Surgical changes and devices: None. Lungs and pleura: No pleural effusions or pneumothorax. Lungs are clear. Mediastinum: Mediastinal contours appear normal. Heart size is normal. Bones and chest wall: No suspicious bony lesions. Overlying soft tissues appear unremarkable. IMPRESSION: No acute cardiopulmonary process. Reviewed by: Lisette Weiss MD on 10/17/2023 5:19 PM PST Approved by: Lisette Weiss MD on 10/17/2023 5:19 PM PST Station ID: [id number]
== END 2023-10-17 07:01 | disposition home or self-care (01) ==
LOC: DI.S 07:00
PROVIDERS: ATTEND Registered Nurse
DX: R53.83 Other fatigue (principal); R42 Dizziness and giddiness; R05.1 Acute cough; R63.0 Anorexia
CPT/HCPCS: 36415; 80053; 85025

== ENCOUNTER 2024-06-06 13:31 | Outpatient (CLI) | payer MEDICARE, MEDICAID | END 2024-06-06 13:32 | disposition home or self-care (01) | LOC: LAB 13:31 | DX: Z01.89 Encounter for other specified special examinations (principal) | CPT/HCPCS: 36415 ==